=== PATIENT | male | born 1970 | race Hispanic/Latino ===

== ENCOUNTER → 2018-05-04 | Day surgery (SDC) | payer SELFPAY ==
[2018-05-03 14:19] LABS: BASOPHILS % 0.5 % (0.0-1.0); EOSINOPHILS # (AUTO) 0.2 (0.0-0.4); EOSINOPHILS % 2.9 % (0.0-6.0); HEMATOCRIT 40.5 % (38.2-49.6); HEMOGLOBIN 14.1 g/dL (14.0-18.0); MEAN CORPUSCULAR HEMOGLOBIN 31.8 pg (28-32); MEAN CORPUSCULAR HGB CONC 34.8 g/dL (31-35); MEAN CORPUSCULAR VOLUME 91.4 fL (81-99); MONOCYTES # (AUTO) 0.5 (0.2-0.8); NEUTROPHILS # (AUTO) 4.1 (2.1-6.9); NEUTROPHILS % 52.3 % (38.7-80.0); PLATELET COUNT 320 x10e3/uL (140-360); RED BLOOD COUNT 4.43 x10e6/uL (4.3-5.7); RED CELL DISTRIBUTION WIDTH 12.9 % (11.7-14.4)
[2018-05-03 14:37] LABS: ANION GAP 14.1 mmol/L (8-16); BLOOD UREA NITROGEN 12 mg/dL (7-26); BUN/CREATININE RATIO 14 (6-25); CALCIUM 9.6 mg/dL (8.4-10.2); CARBON DIOXIDE 25 mmol/L (22-29); CHLORIDE 105 mmol/L (98-107); CREATININE, SERUM 0.84 mg/dL (0.72-1.25); EST GLOMERULAR FILTRATION RATE > 60 ML/MIN (60-); GLUCOSE 94 mg/dL (74-118); POTASSIUM 4.1 mmol/L (3.5-5.1); SODIUM 140 mmol/L (136-145)
[~2018-05-04] MED LIST: ACETAMINOPHEN 1000 MG/100 ML IV ONE; BUPIVACAINE 0.25%/EPI 30ML SDV INJ ONE; CEFOXITIN SOD 1 GM VIAL ONE; DEXAMETHASONE SOD PHOS INJ 4 MG/ML VIAL ONE; FENTANYL CITRATE/PF 100MCG/2 ML INJ ONE; GELATIN SPONGE SZ 100 ONE; HYDROCODONE/APAP 7.5MG-325MG 1 EA TAB ONE; KETOROLAC TROMETHAMINE 30 MG/ML VIAL ONE; LIDOCAINE HCL 1% LOCAL INJ 20 ML VIAL ONE; LIDOCAINE HCL 2% 30 ML TUBE ONE; LIDOCAINE HCL 2% LOCAL INJ 5 ML SDV VIAL INJ ONE; MIDAZOLAM HCL 2 MG/2 ML VIAL ONE; ONDANSETRON HCL INJ 2 MG/ML VIAL ONE; PROPOFOL IV EMULSION 10 MG/ML 20 ML VIAL ONE; SEVOFLURANE INHAL SOLN 250 ML PEN BTL ONE
[2018-05-04 12:30] VITALS: BP 134/82
--- NOTE | 2018-05-04 12:46 | Operative Report ---
DATE OF PROCEDURE: May 04, 2018 PREOPERATIVE DIAGNOSIS: Anorectal fistula. POSTOPERATIVE DIAGNOSIS: Complex extrasphincteric anorectal fistula. OPERATION PERFORMED: Extrasphincteric fistulectomy with placement of a Seton. ANESTHESIA: General. COMPLICATIONS: None. ESTIMATED BLOOD LOSS: 25 mL. DESCRIPTION OF PROCEDURE: With the patient lying in bed in the lithotomy position under good general anesthesia, perineum was prepped with Betadine solution and draped in the usual manner. A fistula probe was then placed in the external opening in the 12 o'clock position. The external opening was about 3 inches from the anorectal verge and the probe was then slowly and carefully followed. The internal opening was found to be at the 12 o'clock position. This was clearly an extrasphincteric fistula. We then went ahead and opened the skin in the perineal area all the way down to the sphincter and then preserved the sphincter and continued to open the fistula all the way down to the internal opening, excising and debriding the internal opening. A Seton was then placed around the sphincter and all of the fistula tract was then slowly and carefully debrided and resected, preserving the sphincter. A 1/4-inch Emeli drain was then sewn to itself in a Seton-type fashion. Hemostasis was ascertained. The whole area was then infiltrated with 0.25% Marcaine solution and once we were sure there was no bleeding and the fistula tract had been totally debrided, the wound was then packed with gauze. Dressing was applied. The sponge, lap, and needle count was correct. Patient tolerated the procedure well and returned to the recovery room in stable condition. Job#: [id number]
== END | disposition home or self-care (01) ==
LOC: OR 06:21
PROVIDERS: ATTEND Surgery
DX: K60.5 Anorectal fistula (principal); F17.210 Nicotine dependence, cigarettes, uncomplicated; Z01.810 Encounter for preprocedural cardiovascular examination; Z01.812 Encounter for preprocedural laboratory examination
CPT/HCPCS: 36415; 46280; 80048; 85025; 93005; J0694; J1100; J1885; J2001; J2250; J2405